=== PATIENT | female | born 1980 | race African-American/Black ===

== ENCOUNTER 2017-08-20 09:28 | Emergency (ER) | payer OTHER ==
[~2017-08-20] VITALS: Ht 172.7 cm; Wt 86.2 kg
[~2017-08-20 09:28] MED LIST: FLEXERIL PO; IBUPROFEN 200200 M1; IBUPROFEN 600600 M1 PO; MACROBID 100 M100 M1 PO; NAPROSYN500 MG PO; NOHOMEMEDICATIONS; NORCO 5-325 TA1 EACH PO; PHENERGAN 25 MG25 M1 PO; PYRIDIUM200 MG PO; ULTRAM 50MG TAB50 MG PO; ZOFRAN ODT4 MG PO; [UNRECOGNIZED DRUG - OTHER] PO
[2017-08-20] MEDS ORDERED: TESSALON PERLE100 MG PO (12:09)
[2018-04-15] MEDS ORDERED: MOBIC15 MG PO (17:42)
[2018-04-15] MEDS ORDERED: BACTRIM DS TAB1 EACH PO (17:42)
== END 2017-08-20 12:27 | disposition home or self-care (01) ==
LOC: ER 09:28
DX: J06.9 Acute upper respiratory infection, unspecified (principal)

== ENCOUNTER 2017-09-24 00:41 | Emergency (ER) | payer OTHER ==
[~2017-09-24] VITALS: Ht 172.7 cm; Wt 86.2 kg
[~2017-09-24 00:41] MED LIST changes: +TESSALON PERLE100 MG PO
[2017-09-24] MEDS ORDERED: TYLENOL325 MG PO (01:09)
[2017-09-24] MEDS ORDERED: NAPROSYN500 MG PO (01:49)
[2018-04-15] MEDS ORDERED: BACTRIM DS TAB1 EACH PO (17:42)
[2018-04-15] MEDS ORDERED: MOBIC15 MG PO (17:42)
== END 2017-09-24 02:25 | disposition home or self-care (01) ==
LOC: ER 00:41
DX: J02.8 Acute pharyngitis due to other specified organisms (principal)

== ENCOUNTER 2019-05-16 09:39 | Emergency (ER) | payer OTHER ==
[~2019-05-16] VITALS: Ht 172.7 cm; Wt 86.2 kg
[2019-05-16 09:39] VITALS: BP 124/76
[~2019-05-16 09:39] MED LIST changes: +BACTRIM DS TAB1 EACH PO; +MOBIC15 MG PO; +TYLENOL325 MG PO
[2019-05-16 10:39] LABS: URINE BILIRUBIN NEGATIVE (Negative); URINE BLOOD NEGATIVE (Negative); URINE CLARITY CLEAR; URINE COLOR YELLOW; URINE GLUCOSE-RANDOM* NEGATIVE (Negative); URINE KETONES NEGATIVE (Negative); URINE LEUKOCYTES-REFLEX NEGATIVE (Negative); URINE NITRITE-REFLEX NEGATIVE (Negative); URINE PROTEIN (DIPSTICK) NEGATIVE (Negative); URINE SPECIFIC GRAVITY 1.025 (1.005-1.035); URINE UROBILINOGEN 0.2 E.U./dl (0.2-1.0)
== END 2019-05-16 11:16 | disposition home or self-care (01) ==
LOC: ER 09:39
PROVIDERS: Emergency Medicine
DX: B34.9 Viral infection, unspecified (principal)

== ENCOUNTER 2019-07-06 22:38 | Emergency (ER) | payer OTHER ==
[~2019-07-06] VITALS: Ht 170.2 cm; Wt 90.7 kg
[2019-07-06 23:28] LABS: ABSOLUTE NEUTROPHILS 8.7 thou/uL (1.4-8.2); BASOPHILS 0.2 % (0.0-2.0); EOSINOPHILS 0.2 % (0.0-3.0); HEMATOCRIT 29.3 % (37.0-47.0); HEMOGLOBIN 9.2 gm/dL (12.0-15.0); LYMPHOCYTES 5.8 % (24.0-44.0); MCH 23.2 pg (26.0-34.0); MCHC 31.4 g/dL (28.0-37.0); MONOCYTES 3.2 % (1.0-8.0); PLATELET COUNT 463 thou/uL (150-400); POLYS 90.6 % (36.0-66.0); RBC 3.97 mil/uL (4.20-5.00); WBC 9.6 thou/uL (4.0-11.0)
[2019-07-06 23:32] LABS: CALCIUM 9.3 mg/dL (8.5-10.1); CREATININE 0.7 mg/dL (0.6-1.0); POTASSIUM 3.9 mmol/L (3.5-5.1)
[2019-07-06 23:38] LABS: ALBUMIN 3.8 g/dL (3.4-5.0); TOTAL BILIRUBIN 0.4 mg/dL (<0.1-1.0); TOTAL PROTEIN 8.5 g/dL (6.4-8.2)
[2019-07-07 01:26] LABS: URINE BILIRUBIN NEGATIVE (Negative); URINE BLOOD NEGATIVE (Negative); URINE CLARITY CLEAR; URINE COLOR YELLOW; URINE GLUCOSE-RANDOM* NEGATIVE (Negative); URINE KETONES NEGATIVE (Negative); URINE LEUKOCYTES-REFLEX NEGATIVE (Negative); URINE NITRITE-REFLEX NEGATIVE (Negative); URINE PROTEIN (DIPSTICK) NEGATIVE (Negative); URINE UROBILINOGEN 0.2 E.U./dl (0.2-1.0)
[2019-07-07] MEDS ORDERED: ZOFRAN ODT4 MG PO (01:40)
[2019-07-07 02:18] VITALS: BP 106/48
--- NOTE | 2019-07-07 16:48 | EKG ---
[address] [address] ELECTROCARDIOGRAM REPORT Name: NOHELIA GRULLON Room #: [facility]#: [id number] Admission: 07/06/19 Attend Phys: Discharge: 07/07/19 Date of : 82 Report #: [id number] THIS REPORT FOR: //name// [facility] ED Test Date: 2019-07-06 Test Time: 23:53:13 Pat Name: NOHELIA GRULLON Department: Room: Gender: F [employer]: SHARATH : 1980 Requested By: Rachelle Lam Order Number: [id number] MD: Collin Terry Measurements Intervals [place] Rate: 77 P: 53 CO: 156 QRS: 43 QRSD: 88 T: 6 QT: 385 QTc: 436 Interpretive Statements Sinus rhythm Borderline T abnormalities, anterior leads Compared to ECG 11/29/2005 07:46:50 T-wave abnormality now present Sinus tachycardia no longer present Electronically Signed On 07-07-2019 16:48:12 [employer] ANALY[employer] by Collin Terry [email or web address] <ELECTRONICALLY SIGNED> By: Collin Terry MD 07/07/19 [id number] Collin Terry MD /DAVID
== END 2019-07-07 02:20 | disposition home or self-care (01) ==
LOC: ER 22:38
PROVIDERS: Emergency Medicine Emergency Medical Services
DX: K52.9 Noninfective gastroenteritis and colitis, unspecified (principal)

== ENCOUNTER 2020-03-21 13:32 | Emergency (ER) | payer OTHER ==
[~2020-03-21] VITALS: Ht 172.7 cm; Wt 86.2 kg
[2020-03-21] MEDS ORDERED: NOHOMEMEDICATIONS (13:55)
[2020-03-21 15:49] LABS: URINE BILIRUBIN NEGATIVE (Negative); URINE BLOOD 1+ (Negative); URINE CLARITY CLEAR; URINE COLOR YELLOW; URINE GLUCOSE-RANDOM* NEGATIVE (Negative); URINE KETONES NEGATIVE (Negative); URINE LEUKOCYTES-REFLEX NEGATIVE (Negative); URINE NITRITE-REFLEX NEGATIVE (Negative); URINE PROTEIN (DIPSTICK) NEGATIVE (Negative); URINE SPECIFIC GRAVITY 1.025 (1.005-1.035)
[2020-03-21 16:08] LABS: BACTERIA-REFLEX 1-9 Few /HPF (None Seen); CASTS None Seen /LPF (None Seen); CRYSTALS None Seen /LPF (None Seen); MUCUS >6 Heavy strn/LPF (None Seen); SQUAMOUS >10 Many /LPF (0-3); URINE RBC 0-2 Rare /HPF (0-2); URINE WBC-REFLEX 0-5 Rare /HPF (0-5)
[2020-03-21] MEDS ORDERED: TESSALON PERLE100 MG PO (17:17)
[2020-03-21 17:36] VITALS: BP 120/76
[2020-03-21] MEDS ORDERED: NORFLEX100 MG PO (18:52)
[2020-03-21] MEDS ORDERED: NAPROSYN500 MG PO (18:52)
== END 2020-03-21 17:38 | disposition home or self-care (01) ==
LOC: ER 13:32
PROVIDERS: Physician Assistant
DX: J06.9 Acute upper respiratory infection, unspecified (principal); Z20.828 Contact with and (suspected) exposure to other viral communicable diseases; M54.5 Low back pain; R43.8 Other disturbances of smell and taste; Z98.890 Other specified postprocedural states

== ENCOUNTER 2020-07-07 08:02 | Emergency (ER) | payer OTHER ==
[~2020-07-07] VITALS: Ht 170.2 cm; Wt 86.2 kg
[~2020-07-07 08:02] MED LIST changes: +NORFLEX100 MG PO
[2020-07-07] MEDS ORDERED: GUAIFEN-CODEINE10 ML PO (10:17)
[2020-07-07] MEDS ORDERED: MOBIC15 MG PO (10:17)
[2020-07-07 10:33] VITALS: BP 132/80
== END 2020-07-07 10:38 | disposition home or self-care (01) ==
LOC: ER 08:02
DX: U07.1 COVID-19 (principal); J06.9 Acute upper respiratory infection, unspecified; Z79.899 Other long term (current) drug therapy